=== PATIENT | male | born 1955 | race Caucasian/White ===

== ENCOUNTER 2017-10-06 23:31 | Emergency (ER) | payer MEDICARE, MEDICAID, SELFPAY ==
[2017-10-06 23:32] VITALS: BP 158/82; PULSE 88; RESP 18; TEMP 36.8; O2SAT 96; BMI 21.2
--- NOTE | 2017-10-06 23:50 | RAD_ITS ---
STUDY: X-RAY CHEST REASON FOR EXAM: Male, 62 years old. Shortness of breath. TECHNIQUE: Frontal views COMPARISON: None. FINDINGS: Lungs are expanded. There are mild fibrotic changes at the lung bases. There are NO active infiltrates. There is no demonstrated pleural abnormality. Normal size heart. Normal mediastinum and chikis. Normal visualized pulmonary arteries. Normal visualized aortic arch and descending thoracic aorta. Normal visualized thoracic spine. Normal visualized ribs, clavicles, and shoulders. There is no demonstrated abnormality of the visualized soft tissue structures of the upper abdomen. RAD/Chest 1 View (Portable) IMPRESSION: There is NO acute cardiopulmonary abnormality. Electronically Signed: Duarte Robertson MD at 1:12 EDT , Service support ,
--- NOTE | 2017-10-06 23:50 | EKG12_ITS ---
Test Reason : Blood Pressure : / mmHG Vent. Rate : 086 BPM Atrial Rate : 086 BPM P-R Int : 146 ms QRS Dur : 096 ms QT Int : 390 ms P-R-T Axes : 068 011 055 degrees QTc Int : 466 ms Normal sinus rhythm Normal ECG Confirmed by MICK SEO, MONICA ([id number]), online content editor DENISE ANDERSON ([id number]) on 10/10/2017 10:26:00 AM Referred By: ED Confirmed By:MONICA BARTON MD
--- NOTE | 2017-10-06 23:51 | ED.VISSUMM ---
- ER Visit Summary Date of Service: 10/06/17 Chief Complaint: [] Weakness History of Present Illness: The patient is a 62 M complains of weakness for last several weeks. He was recently hospitalized. He stated he was on BiPAP for 5 days. He had a staph aureus pneumonia per patient. He stated he had 3 days of antibiotics left to take a signed out AMA from a residential. He was admitted for 2 weeks in the rain per patient. He was at rehab for a month. He is homeless and his shakes. He was on the [employer] and felt weak. He is taking no medications. No cough. No shortness of breath. Physical Examination: Vital signs reviewed General: Well-nourished well-developed Head: Normocephalic atraumatic Eyes: Pupils equal round and reactive to light extraocular movements intact ENT: TMs clear no hemotympanum no trauma Neck: Nontender full range of motion Cardiovascular: Regular rate rhythm no murmurs normal S1-S2 Respiratory: No distress faint and expiratory wheezes chest nontender Abdomen: Soft nontender nondistended normal bowel sounds no masses Back: Nontender no CVA tenderness Extremities: Nontender active range of motion ?4 extremities no trauma Skin: Normal color no trauma Neuro alert oriented cranial nerves II through XII intact normal strength sensation reflexes Test Results: [] Emergency Department Course and Treatment: [] EKG lab work and chest x-ray obtained. They are unremarkable. Sinus at 86 without ischemia. Chest x-ray shows nothing acute. CBC shows a hemoglobin 9.7. Chemistries normal except BUN 6. Given a breathing treatment. And expiratory wheezes resolved. He would like to be discharged. I think this is reasonable. He will follow-up. Treatment Plan: [] Disposition: [] Impression: [] Generalized weakness Anemia This note was generated with [employer] dictation software. It may contain incorrect words, spelling, and punctuation that were not noted in review of the chart prior to signing ED Disposition - Plan for ED Patient: Chief Complaint: Shortness of Breath Referrals: NOT,DEFINED [NON-STAFF] -
--- NOTE | 2017-10-06 23:54 | ED.RN ---
NO OLD EKG'S IN MUSE
[2017-10-07] MEDS: Ipratropium/Albuterol Sulfate 3 ML AMPUL.NEB INHALATION (00:20)
[2017-10-07 00:21] VITALS: PULSE 84; RESP 14
[2017-10-07 00:23] LABS: Anion Gap 8 (5-15); BUN 6 mg/dL (7-18); BUN/Creat Ratio 8.2 RATIO (10-20); Calcium,Total 8.8 mg/dL (8.5-10.1); Chloride 98 mmol/L (98-107); Creatinine, Serum 0.74 mg/dL (0.70-1.30); EST Glomerular Filtration Rate 115 mL/min (>60); Est Glom Filt Rate - Afr Amer 140 mL/min (>60); Estimated Creatinine Clearance 103.75 ml/min; Glucose 104 mg/dL (74-106); Potassium 3.5 mmol/L (3.5-5.1); Sodium Level 138 mmol/L (136-145)
[2017-10-07 00:27] LABS: Absolute Neutrophil Count 4.3 X10^3/uL (2.0-7.7); Basophil# 0.07 X10^3/uL; Basophil% 0.9 % (0-1); Eosinophil# 0.07 X10^3/uL; Eosinophils% 0.9 % (0-5); Hemoglobin 9.7 g/dl (13.0-16.5); Lymphocyte % 20.9 % (19-41); Mean Corp Hgb Conc 30.3 g/gl (32-36); Mean Corpuscular Hgb 24.9 pg (27.0-32.0); Mean Corpuscular Volume 82.1 fL (80-94); Mean Platelet Vol. 9.3 fl (6.2-12.0); Monocyte# 1.64 X10^3/uL; Monocyte% 21.5 % (0-10); Neutrophil # 4.25 X10^3/uL (2.7-7.7); Neutrophil % 55.7 % (47-70); Platelet Count 293 K/mm3 (150-450); RBC Distribution Width CV 23.1 % (11.6-14.6); RBC Distribution Width SD 70.2 fl (35.1-43.9); White Blood Count 7.6 K/mm3 (4.4-11.0)
[2017-10-07 00:28] LABS: Differential Indicated SCAN CRITERIA MET; POSITIVE COUNT NO; POSITIVE DIFFERENTIAL YES; POSITIVE MORPHOLOGY YES
[2017-10-07 00:54] LABS: Anisocytosis RARE; Platelet Estimate ADEQUATE (ADEQ)
--- NOTE | 2017-10-07 01:31 | ED.DEP ---
ED Disposition - Plan for ED Patient: Disposition: Home or Assisted Living Chief Complaint: Shortness of Breath Instructions: ED Weakness [facility] Referrals: NOT,DEFINED [NON-STAFF] - Doctor,Your [STAFF PHYSICIAN] -
[2017-10-07 01:36] VITALS: BP 135/71; PULSE 92; PULSE 93; RESP 22; O2SAT 93
[2017-10-07 12:59] LABS: Pathologist Review Reviewed
== END 2017-10-07 01:37 | disposition home or self-care (01) ==
PROVIDERS: Emergency Provider Emergency Medicine
DX: J44.1 Chronic obstructive pulmonary disease with (acute) exacerbation (principal); D64.9 Anemia, unspecified; R53.1 Weakness; Z99.81 Dependence on supplemental oxygen; Z79.899 Other long term (current) drug therapy; Z72.0 Tobacco use; Z59.0 Homelessness
CPT/HCPCS: 71045; 80048; 85025; 93005; 94640; 99284; A4216

== ENCOUNTER 2017-10-07 12:10 | Emergency (ER) | payer MEDICARE, MEDICAID, SELFPAY ==
[2017-10-07 12:12] VITALS: BP 145/96; PULSE 87; RESP 26; TEMP 36.9; O2SAT 94; BMI 21.2
[2017-10-07 12:17] VITALS: O2SAT 95
--- NOTE | 2017-10-07 12:40 | CASEMGMT ---
Social Work Note Updated by set up and charger, that this is pt's 3rd admission since last evening. Pt was discharged from a SNF in [place] and does not have oxygen. In to speak with pt who confirms that he left the residential yesterday. He intends on returning there and states, if I don't, I will . Bedside nurse is able to provide contact information for SNF. Placed call to [facility] in [place] at [phone]. Spoke with [place] in admissions who reports that the pt left AMA yesterday, still has a week's worth of Vanco to be administered and he has a legal guardian, Tristan Zhao (brother), who can be reached at [phone]. [place] to check with corporate it pt can return to their facility. Placed call to pt's Tristna MCCABE, and updated to present situation. Will continue to update as plans are solidified. Albertina Joseph, PUSHER RUNNER, WELFARE SERVICE AIDE
--- NOTE | 2017-10-07 12:59 | EKG12_ITS ---
Test Reason : SOB Blood Pressure : / mmHG Vent. Rate : 073 BPM Atrial Rate : 073 BPM P-R Int : 154 ms QRS Dur : 096 ms QT Int : 418 ms P-R-T Axes : 069 008 062 degrees QTc Int : 460 ms Normal sinus rhythm Normal ECG Confirmed by MICK SEO, MONICA ([id number]), production editor DENISE ANDERSON ([id number]) on 10/10/2017 10:32:03 AM Referred By: GITA Confirmed By:MONICA BARTON MD
--- NOTE | 2017-10-07 12:59 | RAD_ITS ---
STUDY: X-RAY CHEST REASON FOR EXAM: Male, 62 years old. Increasing shortness of breath. TECHNIQUE: Single AP portable view of the chest. COMPARISON: Comparison is made with prior study dated October 07, 2017 at 12:36 AM. FINDINGS: EKG electrodes are seen. Stable mild increased markings at the lung bases slightly more prominent on the right side suggestive of a scarring or linear atelectasis. Hyperinflation. There is no demonstrated pleural abnormality. Normal size heart. Normal mediastinum and chikis. Normal visualized pulmonary arteries. Normal visualized aortic arch and descending thoracic aorta. Normal visualized thoracic spine. Normal visualized ribs, clavicles, and shoulders. There is no demonstrated abnormality of the visualized soft tissue structures of the upper abdomen. RAD/Chest 1 View (Portable) IMPRESSION: Hyperinflation. Stable mild increased linear markings at the lung bases. Electronically Signed: Bishop Cheatham MD at 14:33 EDT Tel [phone], Service support ,
--- NOTE | 2017-10-07 13:02 | PCA ---
CALLED FOR SENIOR MAINTENANCE MACHINIST FOR DR PELAYO
[2017-10-07 13:18] VITALS: PULSE 74; RESP 16
[2017-10-07] MEDS: Ipratropium/Albuterol Sulfate 3 ML AMPUL.NEB INHALATION ×2 (13:18→16:14)
[2017-10-07] MEDS: Albuterol 2.5 MG/3 ML VIAL.NEB. INHALATION (13:18)
--- NOTE | 2017-10-07 13:44 | CASEMGMT ---
Social Work Note Placed another call to Africa at [facility]. States she has not heard back from corporate and will reach out to them. Inquires if pt is staying inpatient or observation and inform that he is not staying and if they can accept back we will setup transport from ED to their facility. Will await a return phone call from SNF indicating determination, and continue to follow and assist with discharge planning. Albertina Joseph, SANITARY LANDFILL OPERATOR, RUBY DEVELOPER
[2017-10-07 13:54] LABS: Absolute Neutrophil Count 4.8 X10^3/uL (2.0-7.7); Basophil# 0.06 X10^3/uL; Basophil% 0.8 % (0-1); Differential Indicated SCAN CRITERIA MET; Eosinophil# 0.05 X10^3/uL; Eosinophils% 0.7 % (0-5); Hematocrit 33.2 % (40-54); Hemoglobin 10.2 g/dl (13.0-16.5); Lymphocyte % 18.5 % (19-41); Mean Corp Hgb Conc 30.7 g/gl (32-36); Mean Corpuscular Hgb 24.9 pg (27.0-32.0); Mean Platelet Vol. 9.2 fl (6.2-12.0); Monocyte# 1.27 X10^3/uL; Monocyte% 16.8 % (0-10); Neutrophil # 4.78 X10^3/uL (2.7-7.7); Neutrophil % 62.9 % (47-70); POSITIVE COUNT NO; POSITIVE DIFFERENTIAL NO; POSITIVE MORPHOLOGY YES; Platelet Count 277 K/mm3 (150-450); RBC Distribution Width CV 22.9 % (11.6-14.6); RBC Distribution Width SD 67.6 fl (35.1-43.9); White Blood Count 7.6 K/mm3 (4.4-11.0)
[2017-10-07 14:00] LABS: Anion Gap 6 (5-15); BUN 4 mg/dL (7-18); BUN/Creat Ratio 6.3 RATIO (10-20); Calcium,Total 8.6 mg/dL (8.5-10.1); Chloride 100 mmol/L (98-107); Creatinine, Serum 0.64 mg/dL (0.70-1.30); EST Glomerular Filtration Rate 136 mL/min (>60); Est Glom Filt Rate - Afr Amer 164 mL/min (>60); Estimated Creatinine Clearance 110.25 ml/min; Glucose 88 mg/dL (74-106); Potassium 3.5 mmol/L (3.5-5.1); Sodium Level 138 mmol/L (136-145)
[2017-10-07 14:02] VITALS: O2SAT 92
[2017-10-07] MEDS: predniSONE 20 MG Tablet 60 MG PO (14:03)
--- NOTE | 2017-10-07 15:34 | CASEMGMT ---
Addendum entered by Albertina Joseph 10/07/17 17:13: Social Work Note Transport setup by Myles Valero RN CM at 1800 via ambulette. Notified SNF, pt, pt's LG, and RN of discharge time. Faxed discharge information and PAS/RR to SNF. Plan: [facility] for rehabilitation. PAS/RR submitted in the HENS. Transportation setup via ambulette at 1800. TODD Buchanan, FOUNDRY TENDER Original Note: Social Work Note Call from [place] confirming that the pt can return. They will need a PAS/RR completed and transport setup. Physician notified and pt ready to d/c. Transport to be setup. PAS/RR completed and submitted in HENS. Copy to be sent with pt at discharge. [place] TODD Buchanan, FOUNDRY TENDER
--- NOTE | 2017-10-07 16:00 | CM.ED ---
[facility] will provide wheelchair van transportation back to [facility], with 2 L [place] oxygen for transport. Estimated transport time is 1800.
[2017-10-07 16:15] VITALS: PULSE 83; RESP 20
--- NOTE | 2017-10-07 16:57 | ED.VISSUMM ---
- ER Visit Summary Date of Service: 10/07/17 Chief Complaint: Shortness of breath History of Present Illness: The patient is a 62 M COPD on oxygen and chronic anemia. Patient was just seen in the emergency department within the last 12 hours. He has recently signed out AGAINST MEDICAL ADVICE from the extended care facility that he lived at. And now wants to go back there. He denies any nausea, vomiting, diarrhea, fever. He denies any new cough or hemoptysis. He denies chest pain. Physical Examination: Appearing 62-year-old male. Vital signs are stable afebrile. His pulse ox is 94% on room air no hypoxia. He is in no distress. H EENT exam unremarkable. Neck nontender no JVD. Lungs expiratory wheezing throughout. No rales or rhonchi. Equal and symmetrical. Heart regular rate and rhythm no murmur. Abdomen soft nontender. He is moving all 4 extremities. They are nontender. No edema or cords. Neurologically is awake and alert without focal deficits. Test Results: Chest x-ray shows chronic changes no acute process read both by myself the radiologist. EKG sinus rhythm rate is 73 no acute abnormality. White count is 7. H&H of 1033 consistent with his prior anemia. Electrolytes unremarkable. Patient treated with DuoNeb and albuterol aerosols. P.o. prednisone. Is doing well at 1657. Emergency Department Course and Treatment: I spoke to social work instructor. They evaluated the patient spoke to the skilled nursing facility where he was at. They will accept him back. He will be transferred back to around 6 PM. Treatment Plan: [] Disposition: Transferred back to the skilled nursing facility. Impression: COPD flare This note was generated with [employer] dictation software. It may contain incorrect words, spelling, and punctuation that were not noted in review of the chart prior to signing ED Disposition - Plan for ED Patient: Chief Complaint: Shortness of Breath Referrals: Care Physician,No Primary [Primary Care Provider] -
--- NOTE | 2017-10-07 17:02 | ED.DCSUM_ITS ---
- ER Visit Summary Date of Service: 10/07/17 Chief Complaint: Shortness of breath History of Present Illness: The patient is a 62 M COPD on oxygen and chronic anemia. Patient was just seen in the emergency department within the last 12 hours. He has recently signed out AGAINST MEDICAL ADVICE from the extended care facility that he lived at. And now wants to go back there. He denies any nausea, vomiting, diarrhea, fever. He denies any new cough or hemoptysis. He denies chest pain. Physical Examination: Appearing 62-year-old male. Vital signs are stable afebrile. His pulse ox is 94% on room air no hypoxia. He is in no distress. H EENT exam unremarkable. Neck nontender no JVD. Lungs expiratory wheezing throughout. No rales or rhonchi. Equal and symmetrical. Heart regular rate and rhythm no murmur. Abdomen soft nontender. He is moving all 4 extremities. They are nontender. No edema or cords. Neurologically is awake and alert without focal deficits. Test Results: Chest x-ray shows chronic changes no acute process read both by myself the radiologist. EKG sinus rhythm rate is 73 no acute abnormality. White count is 7. H&H of 1033 consistent with his prior anemia. Electrolytes unremarkable. Patient treated with DuoNeb and albuterol aerosols. P.o. prednisone. Is doing well at 1657. Emergency Department Course and Treatment: I spoke to social service coordinator. They evaluated the patient spoke to the [facility] facility [facility]. They will accept him back. He will be transferred back to around 6 PM. Treatment Plan: [] Disposition: Transferred back to the prison facility. Impression: COPD flare This note was generated with [employer] dictation software. It may contain incorrect words, spelling, and punctuation that were not noted in review of the chart prior to signing ED Disposition - Plan for ED Patient: Chief Complaint: Shortness of Breath Referrals: Care Physician,No Primary [Primary Care Provider] -
--- NOTE | 2017-10-07 17:04 | DCINST.ED_ITS ---
ED Disposition - Plan for ED Patient: Disposition: Home or Assisted Living Chief Complaint: Shortness of Breath Instructions: ED COPD Flare Prescriptions: Prednisone [Deltasone] 40 mg PO DAILY 10 Days tab Additional Instructions: Follow-up with the [facility] medical staff physician in the next several days. Prednisone daily for wheezing and COPD flare. Aerosols as needed.
[2017-10-07 17:12] VITALS: BP 155/74; PULSE 78; PULSE 85; RESP 16; RESP 19; O2SAT 96; O2SAT 97
== END 2017-10-07 17:37 | disposition home or self-care (01) ==
PROVIDERS: Emergency Provider Emergency Medicine
DX: J44.1 Chronic obstructive pulmonary disease with (acute) exacerbation (principal); Z99.81 Dependence on supplemental oxygen; Z79.899 Other long term (current) drug therapy; Z72.0 Tobacco use
CPT/HCPCS: 71045; 80048; 85025; 93005; 94640; 99284; A4216